=== PATIENT | female | born 1985 | race Two or more races ===

== ENCOUNTER 2023-10-11 15:47 | Emergency (ER) | payer OTHER ==
[2023-10-11 16:24] LABS: Specific Gravity 1.031 (1.005-1.030); Specific Gravity > 1.030 (1.005-1.030); Sqamous Epithelial <5 /HPF (None Seen); Urine Bacteria <20 /HPF (<20); Urine Bilirubin NEGATIVE (Negative); Urine Blood 2+ (Negative); Urine Clarity Extremely Turbid (Clear); Urine Color Yellow (Yellow); Urine Culture Reflex Order REFLEXED; Urine Glucose NEGATIVE (Negative); Urine Ketones NEGATIVE (Negative); Urine Microscopic Reflex YN ORDER UMIC; Urine Mucus Slight /HPF (None Seen); Urine Nitrite NEGATIVE (Negative); Urine Protein TRACE (Negative); Urine RBC 21-50 /HPF (None Seen); Urine Urobilinogen Normal (Normal); Urine pH 5.5 (5.0-7.0)
[2023-10-11 16:26] LABS: Absolute Basophils 0.1 K/uL (0-0.5); Absolute Eosinophils 0.1 K/uL (0-0.5); Absolute Lymphocytes (CBC) 2.7 K/uL (0.7-4.9); Absolute Monocytes 0.5 K/uL (0.1-1.3); Basophils % 0.7 % (0-1.3); Eosinophils % 1.2 % (0-4.4); Hematocrit 40.1 % (36.0-45.0); Hemoglobin 13.4 g/dL (12.0-15.0); Lymphocytes % 37.1 % (15.3-44.8); MCH 29.9 pg (27.0-35.0); MCHC 33.4 g/dL (32.0-36.0); MCV 89.5 fL (80-100); MPV 8.4 fL (7.6-11.3); Monocytes % 6.9 % (3.3-12.3); Neutrophils % 54.1 % (41.7-73.7); Nucleated Red Blood Cells % 0.2 % (0-0); Platelets 295 thou/uL (152-406); RBC Red Blood Cell Count 4.48 M/uL (3.86-4.86); Red Cell Distribution Width 13.6 % (12.1-15.2)
[2023-10-11 16:41] LABS: Albumin 3.9 g/dL (3.4-5.0); Anion Gap 8.6 mEq/L (5.0-15.0); Bilirubin Total 0.3 mg/dL (0.2-1.0); Globulin 3.8 g/dL (2.3-3.5); Potassium 3.6 mEq/L (3.5-5.1); Protein, Total 7.7 g/dL (6.4-8.2)
--- NOTE | 2023-10-11 17:03 | EDPHYS ---
Physician Documentation [facility] Name: Natalya Lynn Age: 37 yrs Sex: Female : 1985 Arrival Date: 10/11/2023 Time: 15:47 Bed 8 Private MD: ED Physician Chase Piña HPI: 10/10 16:21 This 37 yrs old Female presents to ER via Ambulatory with complaints of Low Back Pain. bo1 16:21 The patient presents with pain that is acute, Center to both sides, "pressure" bo1 Decreased ability to walk/stand/bend. No trauma hx. The symptoms are located in the low back. The pain radiates to the left low back and right low back. Onset: The symptoms/episode began/occurred suddenly, 2 day(s) ago. Modifying factors: The patient symptoms are alleviated by nothing, the patient symptoms are aggravated by any movement, bending. Severity of symptoms: At their worst the symptoms were moderate, No UTI sxs. Periods are heavier past two years since of her child. BP was elevated at triage and better in the room #8. [employer]: 15:57 LMP 10/09/2023, unknown kc6 Historical: - Allergies: 15:57 Biaxin; kc6 - Home Meds: 15:57 None [Active]; kc6 - PMHx: 15:57 None; kc6 - PSHx: 15:57 None; kc6 - Immunization history:: Client reports having NOT received the Covid vaccine. Flu vaccine is up to date. - Infectious Disease History:: Denies. - Social history:: Smoking status: Patient denies any tobacco usage or history of. ROS: 16:24 Constitutional: Negative for fever, chills, and weight loss, bo1 16:24 Eyes: Negative for icterus, 16:24 Cardiovascular: Negative for chest pain, bo1 16:24 Respiratory: Negative for cough, shortness of breath, 16:24 Abdomen/GI: Negative for abdominal pain, nausea and vomiting, 16:24 Back: Positive for pain at rest, pain with movement, of the lumbar area, left low back and right low back, 16:24 : Positive for menstrual abnormality, "heavier cycles", Negative for urinary symptoms, hematuria, Exam: 16:59 Constitutional: This is a well developed, well nourished patient who is awake, alert, bo1 and in no acute distress. 16:59 Constitutional: The patient appears in no acute distress, alert, awake, 16:59 Neck: External neck: no acute changes, 16:59 Cardiovascular: Pulses: no pulse deficits are appreciated, 16:59 Respiratory: the patient does not display signs of respiratory distress, Respirations: normal, Breath sounds: are clear throughout, 16:59 Abdomen/GI: Inspection: abdomen appears normal, Palpation: abdomen is soft and non-tender, voluntary guarding, no appreciated organomegaly, 16:59 Back: CVA tenderness, that is mild, 16:59 Musculoskeletal/extremity: Extremities: all appear grossly normal, with no appreciated pain with palpation, 16:59 Skin: Appearance: Color: normal in color, Temperature: normal temperature, diaphoresis is not appreciated, Vital Signs: 15:54 BP 162 / 104; Pulse 83; Resp 16 S; Pulse Ox 100% on R/A; Weight 83.91 kg (R); Height 5 kc6 ft. 5 in. (R); Pain 8/10; 16:05 BP 138 / 82; Pulse 75; Resp 18; Temp 99; Pulse Ox 100% on R/A; Weight 38.06 kg; ar6 16:53 BP 125 / 86; Pulse 77; Resp 18; Pulse Ox 99% on R/A; ld1 16:57 BP 125 / 86; Pulse 81; Resp 18; Pulse Ox 99% on R/A; ar6 17:35 BP 119 / 84; Pulse 77; Resp 18; Pulse Ox 100% on R/A; ar6 15:54 Body Mass Index 30.79 (38.06 kg, 165.1 cm) kc6 15:54 Pain Scale: Adult kc6 MDM: 15:53 Patient medically screened. bo1 16:59 Differential diagnosis: Herniated disc UTI, Disc disease/back sprain. Data reviewed: bo1 vital signs, lab test result(s), CBC, electrolytes, urinalysis, UPT:. 08 16:00 Order name: CBC with Diff; Complete Time: 16:53 bo1 0808 16:00 Order name: CMP; Complete Time: 16:53 bo1 0808 16:00 Order name: Test, Urine; Complete Time: 16:53 bo1 08 16:00 Order name: Urinalysis w/ reflexes; Complete Time: 16:53 bo1 10/10 16:31 Order name: Urine Culture EDKS 10/10 16:00 Order name: IV Saline Lock; Complete Time: 16:20 bo1 10/10 16:00 Order name: Labs collected and sent; Complete Time: 16:20 bo1 Administered Medications: 17:14 Drug: Rocephin IV 1 grams IV at bolus once; Given slow IV push per pharmacy ar6 instructions Route: IV; Rate: bolus; Site: right antecubital; 17:35 Follow up: Response: No adverse reaction ar6 17:39 Follow up: IV Status: Completed infusion ar6 17:14 Drug: Ketorolac IVP 30 mg IVP once Route: IVP; Site: right antecubital; ar6 17:35 Follow up: Response: No adverse reaction; Pain is decreased ar6 Disposition Summary: 10/11/23 17:02 Discharge Ordered Notes: Location: Home bo1 Problem: new bo1 Symptoms: have improved bo1 Condition: Stable bo1 Diagnosis - UTI/ Urinary tract infection, site not specified bo1 - Low back pain bo1 Followup: bo1 - With: Private Physician - When: 48 Hours - Reason: Recheck today's complaints Discharge Instructions: - Discharge Summary Sheet bo1 - Acute Back Pain, Adult bo1 - Urinary Tract Infection, Adult, [id number] bo1 Forms: - Medication Reconciliation Form bo1 - Antibiotic Education bo1 - Prescription Opioid Use bo1 - Patient Portal Instructions bo1 - Leadership Thank You Letter bo1 Prescriptions: - ketorolac 10 mg Oral tablet - take 1 tablet ORAL route 4 times per day for 2 days as needed for pain; 10 bo1 tablet; Refills: 0, Product Selection Permitted - Cipro 500 mg Oral Tablet - take 1 tablet ORAL route every 12 hours for 10 days; 20 tablet; Refills: 0, bo1 Product Selection Permitted Signatures: Dispatcher [employer] Narcisa Ortiz RN RN kc6 Chase Piña MD MD bo1 Kirsten Galdamez RN RN ar6
--- NOTE | 2023-10-11 17:03 | ER ---
Nurse's Notes [facility] Name: Natalya Lynn Age: 37 yrs Sex: Female : 1985 Arrival Date: 10/11/2023 Time: 15:47 Bed 8 Private MD: Diagnosis: UTI/ Urinary tract infection, site not specified;Low back pain Presentation: 10/10 15:54 Chief complaint: Patient states: JOSE lower back pain that started yesterday. denies kc6 injury or urinary symptoms. Coronavirus screen: At this time, the client does not indicate any symptoms associated with coronavirus-19. Ebola Screen: No symptoms or risks identified at this time. Initial Sepsis Screen: Does the patient meet any 2 criteria? No. Patient's initial sepsis screen is negative. Does the patient have a suspected source of infection? No. Patient's initial sepsis screen is negative. Risk Assessment: Do you want to hurt yourself or someone else? Patient reports no desire to harm self or others. Onset of symptoms was October 10, 2023. 15:54 Method Of Arrival: Ambulatory [facility] 15:54 Acuity: ALYSIA 3 [facility] Triage Assessment: 15:57 General: Appears in no apparent distress. uncomfortable, well groomed, well developed, 6 Behavior is calm, cooperative, appropriate for age. Pain: Complains of pain in lumbar area, left low back and right low back Pain currently is 8 out of 10 on a pain scale. GI: No signs and/or symptoms were reported involving the gastrointestinal system. : No signs and/or symptoms were reported regarding the genitourinary system. 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 Flu vaccine is up to date. - Infectious Disease History:: Denies. - Social history:: Smoking status: Patient denies any tobacco usage or history of. Screenin:05 [facility] ED Fall Risk Assessment (Adult) History of falling in the last 3 months, ar6 including since admission No falls in past 3 months (0 pts) Confusion or Disorientation No (0 pts) Intoxicated or Sedated No (0 pts) Impaired Gait No (0 pts) Mobility Assist Device Used No (0 pt) Altered Elimination No (0 pt) Score/Fall Risk Level 0 - 2 = Low Risk. Abuse screen: Denies threats or abuse. Denies injuries from another. Nutritional screening: No deficits noted. Tuberculosis screening: No symptoms or risk factors identified. Assessment: 16:05 General: Appears uncomfortable, Behavior is calm, cooperative, Smells of. Pain: ar6 Complains of pain in back Pain radiates to right leg, left leg, back of left leg and back of right leg Pain currently is 8 out of 10 on a pain scale. Quality of pain is described as pressure, sharp, shooting, Pain began 2-3 days ago. Is continuous. Neuro: Level of Consciousness is awake, alert, obeys commands, Oriented to person, place, time, situation. Cardiovascular: Capillary refill < 3 seconds. Respiratory: Airway is patent. GI: Abdomen is round non-distended, Reports nausea. : Urine is cloudy. EENT: No deficits noted. Derm: Skin is intact, is healthy with good turgor, Skin is dry, Skin is pink, warm \T\ dry. Musculoskeletal: Reports pain in right leg, left leg, back of left leg, back of right leg and back. 16:53 Reassessment: Patient appears in no apparent distress at this time. No changes from ld1 previously documented assessment. Patient and/or family updated on plan of care and expected duration. Pain level reassessed. 16:57 Reassessment: No changes from previously documented assessment. Patient and/or family ar6 updated on plan of care and expected duration. Pain level reassessed. Vital Signs: 15:54 BP 162 / 104; Pulse 83; Resp 16 S; Pulse Ox 100% on R/A; Weight 83.91 kg (R); Height 5 kc6 ft. 5 in. (R); Pain 8/10; 16:05 BP 138 / 82; Pulse 75; Resp 18; Temp 99; Pulse Ox 100% on R/A; Weight 38.06 kg; ar6 16:53 BP 125 / 86; Pulse 77; Resp 18; Pulse Ox 99% on R/A; ld1 16:57 BP 125 / 86; Pulse 81; Resp 18; Pulse Ox 99% on R/A; ar6 17:35 BP 119 / 84; Pulse 77; Resp 18; Pulse Ox 100% on R/A; ar6 15:54 Body Mass Index 30.79 (38.06 kg, 165.1 cm) kc6 15:54 Pain Scale: Adult [facility] ED Course: 15:50 Patient arrived in ED. im 15:53 Chase Piña MD is Attending Physician. bo1 15:57 Triage completed. kc6 15:57 Arm band placed on. kc6 16:05 Patient has correct armband on for positive identification. Bed in low position. Call ar6 light in reach. Side rails up X 1. 16:05 Inserted saline lock: 20 gauge in right antecubital area, using aseptic technique. ar6 Blood collected. Flushed with 10 mL NS. 16:08 Kirsten Galdamez, RN is Primary Nurse. ar6 16:20 CBC with Diff Sent. ar6 16:20 CMP Sent. ar6 16:20 Test, Urine Sent. ar6 16:20 Urinalysis w/ reflexes Sent. ar6 17:00 Urine Culture Sent. ar6 17:36 No provider procedures requiring assistance completed. IV discontinued, intact, ar6 bleeding controlled, No redness/swelling at site. Pressure dressing applied. 17:37 Provided Education on: medications. ar6 Administered Medications: 17:14 Drug: Rocephin IV 1 grams IV at bolus once; Given slow IV push per pharmacy ar6 instructions Route: IV; Rate: bolus; Site: right antecubital; 17:35 Follow up: Response: No adverse reaction ar6 17:39 Follow up: IV Status: Completed infusion ar6 17:14 Drug: Ketorolac IVP 30 mg IVP once Route: IVP; Site: right antecubital; ar6 17:35 Follow up: Response: No adverse reaction; Pain is decreased ar6 Medication: 17:37 VIS not applicable for this client. ar6 Outcome: 17:02 Discharge ordered by . bo1 17:36 Discharged to home ambulatory, ar6 17:36 Condition: good 17:36 Discharge instructions given to patient, Instructed on discharge instructions, follow up and referral plans. medication usage, Demonstrated understanding of instructions, follow-up care, medications, Prescriptions given X 2, 17:38 Patient left the ED. ar6 Signatures: Ivelisse Ellison, RN RN ld1 Narcisa Fairchild RN RN kc6 Latasha Barrios Benjamin, MD MD bo1 Kirsten Galdamez, MINDY RN ar6
[2023-10-11] MEDS ORDERED: CEFTRIAXONE 1000 MG/VIAL ONE (17:05)
[2023-10-11] MEDS ORDERED: KETOROLAC 30 MG/ML INJ ONE (17:05)
[2023-10-11 17:43] VITALS: TEMP 99
[2023-10-11 17:46] VITALS: BP 119/84; O2SAT 100
== END 2023-10-11 17:38 | disposition home or self-care (01) ==
LOC: ER 15:47
DX: N39.0 Urinary tract infection, site not specified (principal); M54.50 Low back pain, unspecified; Z88.8 Allergy status to other drugs, medicaments and biological substances
CPT/HCPCS: 96365; 87088; 85025; 81001; 87086; 36415; 81025; 80053; 96375; 99284; J0696

== ENCOUNTER 2024-01-01 16:01 | Emergency (ER) | payer OTHER ==
--- OUTSIDE RECORDS SUMMARY | 2024-01-01 16:05 | XMS REPORT | Continuity of Care Document ---
Author Name Unknown Address [address] [place] [address] [employer] Address [address] [place] [id number] Care Team Providers Care Education Program Specialist Name Role Phone Unavailable Unavailable Unavailable
[2024-01-01 17:52] LABS: Specific Gravity 1.027 (1.005-1.030); Sqamous Epithelial <5 /HPF (None Seen); Urine Bacteria <20 /HPF (<20); Urine Bilirubin NEGATIVE (Negative); Urine Blood 2+ (Negative); Urine Clarity Extremely Turbid (Clear); Urine Color Light-Yellow (Yellow); Urine Culture Reflex Order REFLEXED; Urine Glucose NEGATIVE (Negative); Urine Ketones 1+ (Negative); Urine Microscopic Reflex YN ORDER UMIC; Urine Mucus Slight /HPF (None Seen); Urine Nitrite NEGATIVE (Negative); Urine Protein NEGATIVE (Negative); Urine Urobilinogen Normal (Normal); Urine Yeast (Budding) Trace /HPF (None Seen); Urine pH 5.5 (5.0-7.0)
--- NOTE | 2024-01-01 19:01 | RAD REPORT ---
EXAMINATION: CT Stone Protocol CLINICAL INDICATION: Female, 38 years old. FLANK PAIN TECHNIQUE: CT abdomen and pelvis was performed, without IV contrast, as per department protocol. Axia l, sagittal and coronal reconstructions were obtained. One or more of the following dose reduction techniques were used: Automated exposure control, adjustment of the mA and kV according to the patien t size, and iterative reconstruction. Unless otherwise specified, incidental findings do not require dedicated imaging follow-up. COMPARISON: No prior exam. FINDINGS: The lack of intravenous contrast limits the sensitivity of this exam for evaluation of solid visceral organs, vascular structures, and retroperitoneum. LOWER CHEST: The visualized lung bases are clear. LIVER: Normal in size and contour. Diffuse parenchymal hypoattenuation suggesting steatosis. No focal lesion. BILIARY SYSTEM: No suspicious abnormalities. SPLEEN: Normal size. No focal lesion. PANCREAS: No mass, ductal dilation, or tere-pancreatic fluid. ADRENALS: Normal; no mass. KIDNEYS AND URETERS: Normal size and contour. No hydronephrosis. URINARY BLADDER: Decompressed limiting evaluation. GASTROINTESTINAL TRACT: No evidence of bowel obstruction, significant free fluid, free air or abscess . APPENDIX: Normal appendix. LYMPH NODES: No lymphadenopathy. MUSCULOSKELETAL: No acute or suspicious osseous abnormality. ADDITIONAL FINDINGS: Small subserosal marginally calcified lesion arising from the uterine fundus ant eriorly, suggesting a fibroid. IMPRESSION: No no evidence of radiopaque calculi or obstruction. Incidental findings as above, including diffuse hepatic steatosis.
--- NOTE | 2024-01-01 19:14 | ER ---
Nurse's Notes [facility] Name: Natalya Lynn Age: 38 yrs Sex: Female : 1985 Arrival Date: 01/01/2024 Time: 16:01 Bed 12 Private MD: Diagnosis: Low back pain Presentation: 12/31 17:00 Chief complaint: Patient states: I have been having lower back pain since yesterday. It jb4 is primarily on my left side and radiates to my hips. Coronavirus screen: At this time, the client does not indicate any symptoms associated with coronavirus-19. Ebola Screen: No symptoms or risks identified at this time. Initial Sepsis Screen: Does the patient meet any 2 criteria? No. Patient's initial sepsis screen is negative. Does the patient have a suspected source of infection? No. Patient's initial sepsis screen is negative. Risk Assessment: Do you want to hurt yourself or someone else? Patient reports no desire to harm self or others. Onset of symptoms was December 31, 2023. Transition of care: patient was not received from another setting of care. 17:00 Method Of Arrival: Ambulatory jb4 17:00 Acuity: ALYSIA 3 jb4 Triage Assessment: 17:01 General: Appears in no apparent distress. uncomfortable, Behavior is calm, cooperative. jb4 Pain: Complains of pain in low back area Pain radiates to suprapubic area Pain currently is 9 out of 10 on a pain scale. Cardiovascular: Patient's skin is warm and dry. Respiratory: Airway is patent Respiratory effort is even, unlabored, Respiratory pattern is regular, symmetrical. Musculoskeletal: Circulation, motion, and sensation intact. Range of motion: intact in all extremities. Historical: - Allergies: 17:01 Biaxin; jb4 - PMHx: 17:01 None; jb4 - PSHx: 17:01 None; jb4 - Immunization history:: Adult Immunizations. - Infectious Disease History:: Denies. - Social history:: Smoking status: Patient denies any tobacco usage or history of. Patient uses alcohol, occasionally. Screenin:34 [facility] ED Fall Risk Assessment (Adult) History of falling in the last 3 months, jb4 including since admission No falls in past 3 months (0 pts) Confusion or Disorientation No (0 pts) Intoxicated or Sedated No (0 pts) Impaired Gait No (0 pts) Mobility Assist Device Used No (0 pt) Altered Elimination No (0 pt) Score/Fall Risk Level 0 - 2 = Low Risk Oriented to surroundings, Maintained a safe environment. Abuse screen: Denies threats or abuse. Nutritional screening: No deficits noted. Tuberculosis screening: No symptoms or risk factors identified. Assessment: 19:34 Reassessment: Patient appears in no apparent distress at this time. Patient and/or jb4 family updated on plan of care and expected duration. Pain level reassessed. Patient is alert, oriented x 3, equal unlabored respirations, skin warm/dry/pink. Patient states feeling better. Vital Signs: 17:00 BP 148 / 81; Pulse 67; Resp 16; Temp 98.9(O); Pulse Ox 97% on R/A; Weight 83.91 kg (R); jb4 Height 5 ft. 5 in. (R); Pain 9/10; 17:00 Body Mass Index 30.79 (83.91 kg, 165.1 cm) jb4 17:00 Pain Scale: Adult jb4 ED Course: 16:04 Patient arrived in ED. mg5 16:10 [facility]C [facility] kb 16:10 Stefano Márquez MD is Attending Physician. kb 17:01 Triage completed. jb4 17:02 Arm band placed on right wrist. jb4 17:31 Angeline Ma, RN is Primary Nurse. db 17:36 Test, Urine Sent. db 17:36 Urinalysis w/ reflexes Sent. db 18:20 CT Stone Protocol In Process Unspecified. EDMS 19:34 Patient has correct armband on for positive identification. Bed in low position. Call jb4 light in reach. Side rails up X 1. Provided Education on: discharge instructions.. 19:34 No provider procedures requiring assistance completed. Patient did not have IV access jb4 during this emergency room visit. Administered Medications: No medications were administered Medication: 19:34 VIS not applicable for this client. jb4 Outcome: 19:14 Discharge ordered by . kb 19:34 Discharged to home ambulatory, jb4 19:34 Condition: stable 19:34 Discharge instructions given to patient, Instructed on discharge instructions, follow up and referral plans. medication usage, Demonstrated understanding of instructions, follow-up care, medications, Prescriptions given X 2, 19:35 Patient left the ED. jb4 Signatures: Dispatcher [employer] EDMS Lana Vidal, Alvaro Chavira RN RN jb4 Angeline Ma RN RN db Indy Cardoza mg5
--- NOTE | 2024-01-01 19:14 | EDPHYS ---
Physician Documentation [facility] Name: Natalya Lynn Age: 38 yrs Sex: Female : 1985 Arrival Date: 01/01/2024 Time: 16:01 Bed 12 Private MD: ED Physician Stefano Márquez HPI: 12/31 16:39 This 38 yrs old Female presents to ER via Unassigned with complaints of Back Pain. kb 16:39 Pt is a 38 year old female who presents for back pain that has been intermittent for a kb year and a half. States pain is across low back, worse to left lower back/upper buttock with radiation down legs. States the last time she had this pain was October 2023. Denies any urinary symptoms, vomiting, diarrhea, bowel/bladder issues, numbness, tingling. . Historical: - Allergies: 17:01 Biaxin; jb4 - PMHx: 17:01 None; jb4 - PSHx: 17:01 None; jb4 - Immunization history:: Adult Immunizations. - Infectious Disease History:: Denies. - Social history:: Smoking status: Patient denies any tobacco usage or history of. Patient uses alcohol, occasionally. ROS: 16:42 Constitutional: As per HPI kb Exam: 16:42 Constitutional: This is a well developed, well nourished patient who is awake, alert, kb and in no acute distress. Head/Face: Normocephalic, atraumatic. ENT: Moist Mucous membranes Cardiovascular: Regular rate Respiratory: Respirations even and unlabored. No increased work of breathing. Talking in full sentences Abdomen/GI: Soft, non-tender. No distention Skin: Warm, dry with normal turgor. Normal color. MS/ Extremity: Pulses equal, no cyanosis. Neurovascular intact. Full, normal range of motion. Neuro: Awake and alert, GCS 15, oriented to person, place, time, and situation. 16:42 Back: pain, that is moderate, of the left low back, ROM is normal, normal spinal alignment noted, Vital Signs: 17:00 BP 148 / 81; Pulse 67; Resp 16; Temp 98.9(O); Pulse Ox 97% on R/A; Weight 83.91 kg (R); jb4 Height 5 ft. 5 in. (R); Pain 9/10; 17:00 Body Mass Index 30.79 (83.91 kg, 165.1 cm) jb4 17:00 Pain Scale: Adult jb4 MDM: 16:11 Medical Screening Exam initiated kb 16:43 Data reviewed: vital signs, nurses notes. kb 19:13 Differential diagnosis: uti, chronic pain, sciatica. Counseling: I had a detailed kb discussion with the patient and/or guardian regarding the historical points, exam findings, and any diagnostic results supporting the discharge/admit diagnosis, lab results, radiology results, the need for outpatient follow up, a family practitioner, to return to the emergency department if symptoms worsen or persist or if there are any questions or concerns that arise at home. 12/31 16:43 Order name: Test, Urine; Complete Time: 17:53 kb 12/31 16:43 Order name: Urinalysis w/ reflexes; Complete Time: 17:53 kb 12/31 17:55 Order name: Urine Culture EDWI 12/31 16:43 Order name: CT Stone Protocol; Complete Time: 19:03 kb Administered Medications: No medications were administered Disposition Summary: 01/01/24 19:14 Discharge Ordered Notes: Location: Home kb Condition: Stable kb Diagnosis - Low back pain kb Followup: kb - With: Emergency Department - When: As needed - Reason: Worsening of condition Followup: kb - With: Private Physician - When: 2 - 3 days - Reason: Recheck today's complaints, Continuance of care, Re-evaluation by your physician Discharge Instructions: - Discharge Summary Sheet kb - Musculoskeletal Pain kb - Chronic Back Pain, [id number] kb Forms: - Medication Reconciliation Form kb - Antibiotic Education kb - Prescription Opioid Use kb - Patient Portal Instructions kb - Leadership Thank You Letter kb Prescriptions: - Diclofenac Sodium 75 mg Oral tablet, delayed release (enteric coated) - take 1 tablet ORAL route 2 times per day As needed; 30 tablet; Refills: 0, kb Product Selection Permitted - orphenadrine citrate 100 mg Oral Tablet Sustained Release - take 1 tablet ORAL route 2 times per day As needed; 20 tablet; Refills: 0, kb Product Selection Permitted Signatures: Dispatcher [employer] EDLana Alvarez, MICHELEC Alvaro Luciano, RN RN jb4 Corrections: (The following items were deleted from the chart) 16:44 16:43 Test, Urine+UC.LAB.BRZ ordered. EDMS EDMS 16:43 Urinalysis+U.LAB.BRZ ordered. EDMS EDMS 16:44 Stone Protocol+CT.RAD.BRZ ordered. EDMS EDMS
[2024-01-01 20:12] VITALS: BP 148/81; TEMP 98.9; O2SAT 97
== END 2024-01-01 19:35 | disposition home or self-care (01) ==
LOC: ER 16:01
DX: M54.50 Low back pain, unspecified (principal)
CPT/HCPCS: 74176; 76377; 81001; 81025; 87086; 87088